=== PATIENT | female | born 1955 | race African-American/Black ===

== ENCOUNTER 2024-10-24 00:41 | Inpatient (IN) | payer OTHER, MEDICAID ==
[2024-10-24] VITALS (16 sets, daily range): BP systolic 107–134; BP diastolic 36–76; PULSE 65–88; RESP 13–23; TEMP 27.8–36.9; O2SAT 84–94
[~2024-10-24] VITALS: Ht 171.4 cm; Wt 163.3 kg
[~2024-10-24 00:41] MED LIST: ALBU18HF2 IH; ATOR10TA69; CLON0.1T; FAMO-135 MT; FURO-151 PO; HYDR-1348 PO; HYDR-4009 MT; LEVO50TA52; METH4TAB95 MT; METO25TA6 PO; TRAM50TA
[2024-10-24] MEDS: ALBUTEROL (0.083%) 2.5MG/3ML NEB HHN ONE (01:31)
[2024-10-24] MEDS: IPRATROPIUM BROMIDE (0.02%) 0.5MG/2.5ML NEB HHN ONE (01:32)
[2024-10-24 01:40] LABS: CREATININE 1.1 mg/dL (0.6-1.0); UREA NITROGEN BLOOD 20 mg/dL (9-23)
[2024-10-24 01:41] LABS: HEMATOCRIT. 28.6 % (36.0-48.0); HEMOGLOBIN. 8.3 g/dL (12.0-16.0); MEAN PLATELET VOLUME 7.7 fl (7.4-10.4); PLATELET 149 x1000/uL (130-400); RED BLOOD CELL COUNT 4.00 mill/uL (4.2-5.4); RED CELL DISTRIBUTION WIDTH 22.2 % (11.6-14.6); TROPONIN I HIGH SENSITIVITY 8 ng/L (3.0-34)
[2024-10-24] MEDS: PREDNISONE 20MG TABLET PO ONE (01:54)
[2024-10-24] MEDS ORDERED: ASPIRIN/ACETAMINOPHEN/CAFFEINE 250/250/65MG TABLET PO ONE (03:45)
[2024-10-24 04:23] LABS: TROPONIN I HIGH SENSITIVITY 9 ng/L (3.0-34)
[2024-10-24] MEDS ORDERED: LEVOFLOXACIN 750MG PREMIX 150 ML IV SCH (06:00)
[2024-10-24] MEDS ORDERED: CLONIDINE 0.1MG TABLET PO PRN (06:00)
[2024-10-24] MEDS: METHYLPREDNISOLONE SOD SUCC 40MG/ML (ACT-O-VIAL) IV SCH (06:08)
[2024-10-24] MEDS: HYDROCODONE/ACETAMINOPHEN 10/325MG TABLET PO PRN (06:08)
[2024-10-24] MEDS: IPRATROPIUM/ALBUTEROL 0.5-3(2.5)MG/3ML NEB HHN SCH (08:14)
[2024-10-24] MEDS: FUROSEMIDE 40MG/4ML VIAL IVP SCH (09:00)
[2024-10-24 09:13] LABS: BG BASE EXCESS 7.0 mmol/L (-2.0-3.0); BG CARBOXYHEMOGLOBIN 1.5 % (0.5-1.5); BG DEOXYHEMOGLOBIN 13.2 % (0.0-5.0); BG FRACTION INSPIRED OXYGEN 36; BG HCO3 ACT 34.1 mmol/L (21.0-28.0); BG METHEMOGLOBIN 0.3 % (0.5-1.5); BG OXYGEN SATURATION 86.6 % (94.0-98.0); BG OXYHEMOGLOBIN 85.0 % (94.0-98.0); BG PCO2 63.4 mmHg (32.0-45.0); BG PH 7.348 (7.350-7.450); BG PO2 54.9 mmHg (83.0-108.0); BG SAMPLE SITE RIGHT RADIAL; BG TOTAL HEMOGLOBIN 9.8 g/dL (12.0-16.0); BG VENT MODE NASAL CANNULA
[2024-10-24] MEDS: LEVOFLOXACIN 750MG PREMIX 150 ML IV SCH (10:11)
[2024-10-24] MEDS: ENOXAPARIN 40MG/0.4ML SYR SUBCUT SCH (10:12)
[2024-10-24 10:57] LABS: BAND% 4.0 % (1.0-6.0); BASOPHILS % MANUAL 1.0 % (0.0-2.0); EOSINOPHILS % MANUAL 3.0 % (0.0-5.0); LYMPHOCYTES % MANUAL 8.0 % (20.0-60.0); MONOCYTES % MANUAL 19.0 % (2.0-8.0); NEUTROPHILS % MANUAL 65.0 % (45.0-75.0); PLATELET ESTIMATE NORMAL
[2024-10-24] MEDS ORDERED: NALOXONE HCL 0.4MG/ML VIAL IV PRN (11:00)
[2024-10-24 12:58] LABS: TROPONIN I HIGH SENSITIVITY 6 ng/L (3.0-34)
[2024-10-24 13:13] LABS: BASOPHILS % 0.4 % (0.0-2.0); EOSINOPHILS % 0.1 % (0.0-5.0); HEMATOCRIT. 28.7 % (36.0-48.0); HEMOGLOBIN. 8.2 g/dL (12.0-16.0); LYMPHOCYTES % 9.1 % (20.0-50.0); MEAN PLATELET VOLUME 8.3 fl (7.4-10.4); MONOCYTES % 3.0 % (2.0-8.0); NEUTROPHILS % 87.4 % (40.0-76.0); PLATELET 150 x1000/uL (130-400); RED BLOOD CELL COUNT 4.00 mill/uL (4.2-5.4); RED CELL DISTRIBUTION WIDTH 22.0 % (11.6-14.6)
[2024-10-25] VITALS (19 sets, daily range): BP systolic 104–126; BP diastolic 58–87; PULSE 65–80; RESP 12–22; TEMP 36.4–37.2; O2SAT 85–97
[2024-10-25] MEDS ORDERED: *PATIENT'S OWN MEDICATION STORAGE XX SCH (08:45)
[2024-10-25] MEDS: LEVOFLOXACIN 500MG TABLET PO SCH (09:46)
[2024-10-25] MEDS: BUDESONIDE 0.5MG/2ML NEB HHN SCH (09:51)
[2024-10-25] MEDS: MAGNESIUM 2 G PREMIX 50 ML IV SCH (19:04)
[2024-10-25] MEDS: POTASSIUM CHLORIDE 20MEQ TABLET SR PO SCH (19:09)
[2024-10-25] MEDS: FUROSEMIDE 40MG TABLET PO SCH (20:37)
[2024-10-25] MEDS: METOPROLOL TARTRATE 25MG TABLET PO SCH (20:37)
[2024-10-25] MEDS: KETOROLAC 15MG/ML VIAL IV PRN (23:09)
[2024-10-26] VITALS (16 sets, daily range): BP systolic 95–129; BP diastolic 60–83; PULSE 60–82; RESP 12–21; TEMP 36.9–37.4; O2SAT 93–98
[2024-10-26] MEDS: LEVOTHYROXINE SODIUM 50MCG TABLET PO SCH (08:09)
[2024-10-26] MEDS: ATORVASTATIN CALCIUM 20MG TABLET PO SCH (08:09)
[2024-10-26] MEDS ORDERED: LEVOTHYROXINE SODIUM 50MCG TABLET PO SCH (09:00)
[2024-10-26 10:17] LABS: BASOPHILS % 0.2 % (0.0-2.0); EOSINOPHILS % 0.2 % (0.0-5.0); HEMATOCRIT. 29.4 % (36.0-48.0); HEMOGLOBIN. 8.4 g/dL (12.0-16.0); LYMPHOCYTES % 8.1 % (20.0-50.0); MEAN PLATELET VOLUME 8.4 fl (7.4-10.4); MONOCYTES % 9.6 % (2.0-8.0); NEUTROPHILS % 81.9 % (40.0-76.0); PLATELET 226 x1000/uL (130-400); RED BLOOD CELL COUNT 4.05 mill/uL (4.2-5.4); RED CELL DISTRIBUTION WIDTH 21.7 % (11.6-14.6)
[2024-10-26 10:34] LABS: CREATININE 1.1 mg/dL (0.6-1.0); UREA NITROGEN BLOOD 30.0 mg/dL (9-23)
[2024-10-26 11:51] LABS: BG BASE EXCESS 1.2 mmol/L (-2.0-3.0); BG CARBOXYHEMOGLOBIN 1.1 % (0.5-1.5); BG DEOXYHEMOGLOBIN 6.0 % (0.0-5.0); BG FRACTION INSPIRED OXYGEN 32; BG HCO3 ACT 27.2 mmol/L (21.0-28.0); BG METHEMOGLOBIN 0.4 % (0.5-1.5); BG OXYGEN SATURATION 93.9 % (94.0-98.0); BG OXYHEMOGLOBIN 92.5 % (94.0-98.0); BG PCO2 50.8 mmHg (32.0-45.0); BG PH 7.347 (7.350-7.450); BG PO2 73.7 mmHg (83.0-108.0); BG SAMPLE SITE RIGHT RADIAL; BG TOTAL HEMOGLOBIN 9.1 g/dL (12.0-16.0); BG VENT MODE NASAL CANNULA
[2024-10-27] VITALS (17 sets, daily range): BP systolic 106–161; BP diastolic 65–101; PULSE 48–75; RESP 11–20; TEMP 36.4–37.1; O2SAT 84–98
[2024-10-28] VITALS (30 sets, daily range): BP systolic 107–145; BP diastolic 59–81; PULSE 53–89; RESP 12–25; TEMP 36.4–36.7; O2SAT 89–96
[2024-10-28] MEDS ORDERED: IPRATROPIUM/ALBUTEROL 0.5-3(2.5)MG/3ML NEB HHN PRN (12:15)
[2024-10-28 17:21] LABS: PLATELET 228 x1000/uL (130-400); RED BLOOD CELL COUNT 4.04 mill/uL (4.2-5.4); RED CELL DISTRIBUTION WIDTH 22.2 % (11.6-14.6)
[2024-10-28 17:35] LABS: CREATININE 1.0 mg/dL (0.6-1.0)
[2024-10-28 17:36] LABS: UREA NITROGEN BLOOD 32 mg/dL (9-23)
[2024-10-28 17:37] LABS: ASPARTATE AMINOTRANSFERASE 17 IU/L (<34)
[2024-10-28 17:38] LABS: BILIRUBIN TOTAL 0.9 mg/dL (0.1-1.0); PROTEIN TOTAL 7.3 g/dL (6.0-8.3)
[2024-10-28 19:10] LABS: TROPONIN I HIGH SENSITIVITY 11 ng/L (3.0-34)
[2024-10-28] MEDS ORDERED: FUROSEMIDE 40MG/4 ML UDC PO SCH (21:00)
[2024-10-29] VITALS (15 sets, daily range): BP systolic 93–124; BP diastolic 53–81; PULSE 50–96; RESP 12–25; TEMP 36.4–36.8; O2SAT 95–99
[2024-10-29] MEDS ORDERED: PREDNISONE 10MG TABLET PO SCH (09:00)
[2024-10-29] MEDS ORDERED: PREDNISOLONE 15 MG/5 ML ORAL SYRINGE PO SCH (09:00)
[2024-10-29] MEDS: PREDNISONE 20MG TABLET PO SCH (09:26)
[2024-10-29] MEDS: ACETAMINOPHEN 325MG TABLET PO PRN (10:57)
[2024-10-29] MEDS ORDERED: P20 PO (14:00)
[2024-10-29] MEDS ORDERED: LIDOCAINE HCL/PF 2% 20MG/ML 5 ML/VIAL INJ SCH (19:30)
[2024-10-29] MEDS: TETANUS, DIPHTHERIA, PERTUSSIS VAC/PF 0.5ML (>10YR OLD) IM ONE (23:03)
[2024-10-30] VITALS (10 sets, daily range): BP systolic 85–115; BP diastolic 54–76; PULSE 51–97; RESP 11–20; TEMP 36.3–37.3; O2SAT 93–99
[2024-10-30] MEDS: HYDROCODONE/ACETAMINOPHEN 5/325MG TABLET PO PRN (06:21)
== END 2024-10-30 20:30 | disposition home health service (06) | DRG 190 ==
LOC: ER 00:41 → 8WST 03:30 → EDBEDREQ 03:34 → EDBEDREQTM 03:34 → ENRESERV 04:36 → 5EST 10:50
PROVIDERS: ADMIT Internal Medicine; ATTEND Internal Medicine
PROC: 5A09357 Assistance with Respiratory Ventilation, Less than 24 Consecutive Hours, Continuous Positive Airway Pressure (ICD-10-PCS; principal; 2024-10-24)
DX: J44.1 Chronic obstructive pulmonary disease with (acute) exacerbation (principal); J96.02 Acute respiratory failure with hypercapnia; I11.0 Hypertensive heart disease with heart failure; E66.01 Morbid (severe) obesity due to excess calories; I50.9 Heart failure, unspecified; E78.5 Hyperlipidemia, unspecified; R51.9 Headache, unspecified; S81.812A Laceration without foreign body, left lower leg, initial encounter; M19.90 Unspecified osteoarthritis, unspecified site; G89.29 Other chronic pain; F17.210 Nicotine dependence, cigarettes, uncomplicated; Z88.8 Allergy status to other drugs, medicaments and biological substances; Z99.81 Dependence on supplemental oxygen; Z88.0 Allergy status to penicillin; Z91.048 Other nonmedicinal substance allergy status; Z79.899 Other long term (current) drug therapy; X58.XXXA Exposure to other specified factors, initial encounter; Y93.89 Activity, other specified; Y92.89 Other specified places as the place of occurrence of the external cause; Y99.8 Other external cause status
CPT/HCPCS: 36415; 36600; 71045; 80048; 80053; 82375; 82553; 82805; 83880; 84484; 85025; 85027; 90715; 93005; 94070; 94640; 94660; 94664; 97162; 97166; 99285; A4606; J1650; J1885; J1938; J1956; J2919; J3475; J3490; J7512; J7626